=== PATIENT | female | born 1965 | race African-American/Black ===

== ENCOUNTER → 2019-07-01 | Outpatient (CLI) | payer OTHER | END | disposition home or self-care (01) | LOC: MA 05-30 14:30 → RD 11:26 → MA 07-11 10:30 | PROC: BH02ZZZ Plain Radiography of Bilateral Breasts (ICD-10-PCS; principal; 2019-07-01) | DX: Z12.31 Encounter for screening mammogram for malignant neoplasm of breast (principal) | CPT/HCPCS: 77067 ==

== ENCOUNTER → 2019-07-01 | Outpatient (CLI) | payer OTHER | END | disposition home or self-care (01) | LOC: RD 11:59 | DX: M25.512 Pain in left shoulder (principal) ==